=== PATIENT | female | born 1965 | race Two or more races ===

== ENCOUNTER 2017-07-08 19:09 | Emergency (ER) | payer OTHER ==
[~2017-07-08] VITALS: Ht 149.9 cm; Wt 59.0 kg
[2017-07-08] MEDS ORDERED: NKM (19:18)
--- NOTE | 2017-07-08 19:49 | Emergency Room Report ---
History of Present Illness General Chief Complaint: Multiple Trauma/Fall Source: Patient Present Illness HPI 52-year-old female presents to the emergency department complaining of 6/10 in severity localized pain to the left side of the neck and left side of the scalp status post mechanical slip and fall at work yesterday. Patient denies nausea, vomiting, dizziness, changes in vision. He should see she took Advil which provided mild relief but has returned. She denies midline neck pain or back pain. Patient denies taking blood thinning medications. She denies bruising. Denies numbness tingling or loss of sensation or gross motor movements of the extremities, incontinence of bowel or bladder. Denies CP, Palpitations, LOC, AMS , dizziness, Changes in Vision, Sensation, paresthesias, or a sudden severe headache. Allergies: Coded Allergies: No Known Allergies (Unverified , 07/08/17) Patient History Past Medical History: see triage record Past Surgical History: none Pertinent Family History: none Last Menstrual Period: none Now: No Reviewed Nursing Documentation: PMH: Agreed, PSxH: Agreed Nursing Documentation-PMH Past Medical History: No Stated History Review of Systems All Other Systems: negative except mentioned in HPI Physical Exam Vital Signs Date Time Temp Pulse Resp B/P (MAP) Pulse Ox O2 Delivery O2 Flow Rate FiO2 07/08/17 19:13 98.1 84 18 147/92 98 Room Air Sp02 EP Interpretation: reviewed, normal General Appearance: no apparent distress, alert, GCS 15, non-toxic Head: normocephalic, atraumatic Eyes: bilateral eye normal inspection, bilateral eye PERRL, bilateral eye EOMI ENT: hearing grossly normal, normal voice Neck: full range of motion, no bony tend, supple/symm/no masses, tender lateral - left lateral ttp. Respiratory: chest non-tender, lungs clear, normal breath sounds, speaking full sentences Cardiovascular #1: regular rate, rhythm Rectal: deferred Musculoskeletal: back normal, gait/station normal, normal range of motion, tender - left sided TTP to the trapezius, and parietal area, no obvious echymosis, no obvious deformities, TTP localized to the musculature no bony TTP. Neurologic: alert, oriented x3, responsive, motor strength/tone normal, sensory intact, normal gait, speech normal, no pronator Psychiatric: judgement/insight normal, memory normal, mood/affect normal Skin: normal color, no rash, warm/dry, well hydrated Medical Decision Making PA Attestation Dr. lozano is my supervising Physician whom patient management has been discussed with. Diagnostic Impression: Primary Impression: Contusion of scalp Qualified Codes: S00.03XA - Contusion of scalp, initial encounter Additional Impression: Cervical strain, acute Qualified Codes: S16.1XXA - Strain of muscle, fascia and tendon at neck level , initial encounter ER Course 52-year-old female presents to the emergency department complaining of 6/10 in severity localized pain to the left side of the neck and left side of the scalp status post mechanical slip and fall at work yesterday. Patient denies nausea, vomiting, dizziness, changes in vision. He should see she took Advil which provided mild relief but has returned. She denies midline neck pain or back pain. Patient denies taking blood thinning medications. She denies bruising. Denies numbness tingling or loss of sensation or gross motor movements of the extremities, incontinence of bowel or bladder. Denies CP, Palpitations, LOC, AMS , dizziness, Changes in Vision, Sensation, paresthesias, or a sudden severe headache. Ddx considered but are not limited to Fracture, dislocation, contusion, subdural hematoma, Sprain/Strain/Spasm just to name a few. Vital signs: are WNL, pt. is afebrile H&PE are most consistent with Scalp contusion, and acute left sided cervical muscle strain. no neurological deficits noted. ORDERS: none required at this time. no bony ttp that warrant imaging. ED INTERVENTIONS: -Soma PO DISCHARGE: At this time pt. is stable for d/c to home. Will provide printed patient care instructions, and any necessary prescriptions. Care plan and follow up instructions have been discussed with the patient prior to discharge. Last Vital Signs Date Time Temp Pulse Resp B/P (MAP) Pulse Ox O2 Delivery O2 Flow Rate FiO2 07/08/17 19:13 98.1 84 18 147/92 98 Room Air Disposition: HOME, SELF-CARE Condition: Stable Scripts Ibuprofen* (MOTRIN*) 600 Mg Tablet 600 MG ORAL THREE TIMES A DAY, #30 TAB 0 Refills Prov: Nancy Sandhu P.A. 07/08/17 Methocarbamol* (ROBAXIN-750*) 750 Mg Tablet 750 MG PO TID for 7 Days, #21 TAB 0 Refills Prov: Nancy Sandhu 07/08/17 Departure Forms: Return to Work Return to Work Date: Jul 11, 2017 Work Restrictions: No Heavy Lifting, No Prolonged Standing Other Restrictions: light duty x 1 week. Return to Full Activity: Jul 18, 2017 Patient Instructions: Contusion, [id number], Muscle Strain, [id number] Additional Instructions: Take medications as directed. Follow up with a Primary Care Provider in 3-5 days, even if your symptoms have resolved. --Please review list of primary care clinics, if you do not already have a primary care provider Return sooner to ED if new symptoms occur, or current symptoms become worse. Do not drink alcohol, drive, or operate heavy machinery while taking Muscle Relaxer as this may cause drowsiness. - Please note that this Emergency Department Report was dictated using [employer] support professional home health technology software, occasionally this can lead to erroneous entry secondary to interpretation by the dictation equipment. Nancy Sandhu Jul 08, 2017 19:49
[2017-07-08] MEDS ORDERED: ROBAXIN-750750 MG PO (19:51)
[2017-07-08] MEDS ORDERED: IBUPROFEN600 MG ORAL (19:51)
[2017-07-08 20:05] VITALS: BP 147/92
== END 2017-07-08 20:06 | disposition home or self-care (01) ==
LOC: EMR 19:45
DX: S00.03XA Contusion of scalp, initial encounter (principal); S16.1XXA Strain of muscle, fascia and tendon at neck level, initial encounter; W01.0XXA Fall on same level from slipping, tripping and stumbling without subsequent striking against object, initial encounter; Y92.59 Other trade areas as the place of occurrence of the external cause; Y99.0 Civilian activity done for income or pay
CPT/HCPCS: 99284